=== PATIENT | female | born 1955 | race Caucasian/White ===

== ENCOUNTER 2018-05-10 08:34 | Emergency (ER) | payer OTHER ==
[2018-05-10] MEDS ORDERED: Ondansetron HCl/PF 4 MG/2 ML Vial ONE (09:22)
[2018-05-10 09:31] LABS: Hemoglobin 15.9 g/dL (12.0-16.0); Mean Corpuscular HGB CONC 35.6 g/dL (32.0-36.0); Mean Corpuscular Hemoglobin 29.6 pg (27.0-31.0); Mean Corpuscular Volume 83.2 fL (78.0-98.0); Mean Platelet Volume 6.7 fL (7.4-10.4); Platelet Count 263 thou/uL (130-400); RBC Distribution Width 11.9 % (11.5-14.5); Red Blood Cell (RBC) Count 5.38 mill/uL (4.20-5.40); White Blood Cell (WBC) Count 21.5 thou/uL (4.8-10.8)
[2018-05-10 09:48] LABS: ALT (SGPT) 17 U/L (8-55); AST (SGOT) 10 U/L (5-34); Albumin 4.1 g/dL (3.4-4.8); Alkaline Phosphatase 98 U/L (40-150); Anion Gap 16 mmol/L (10-20); BUN (Urea Nitrogen) 20 mg/dL (9.8-20.1); Bilirubin, Total 1.7 mg/dL (0.2-1.2); Calc. Creatinine Clearance 0 mL/min (70-130); Calcium 11.9 mg/dL (7.8-10.44); Carbon Dioxide 27 mmol/L (23-31); Chloride 99 mmol/L (98-107); Estimated GFR-MDRD 54; Globulin 3.8 g/dL (2.4-3.5); Glucose 152 mg/dL (80-115); Lipase 10 U/L (8-78); Potassium 3.9 mmol/L (3.5-5.1); Protein, Total 7.9 g/dL (6.0-8.3); Sodium 138 mmol/L (136-145)
[2018-05-10 09:57] LABS: Lymphocytes 9 % (21-51); MDiff Complete? YES; Monocytes 4 % (0-10); Neutrophil 87 % (42-75); PLT Morphology Comment Appears Adequate; RBC Morphology Normal
[2018-05-10] MEDS ORDERED: Fentanyl 100 MCG/2 ML VIAL ONE (10:52)
[2018-05-10] MEDS ORDERED: Sodium Chloride 0.9% 100 ML ONE (10:54)
[2018-05-10] MEDS ORDERED: Piperacillin/Tazobactam 3.375 GM VIAL ONE (10:54)
[2018-05-10 11:14] LABS: Bilirubin Small (Negative); Blood, Urine Trace (Negative); Clarity Cloudy (Clear); Glucose, Urine (Dipstick) Negative (Negative); Leukocyte Trace (Negative); Nitrite Negative (Negative); Protein, Urine (Dipstick) 30 mg/dL (Neg-Trace); RBC/HPF 0-3 HPF (0-3); Squamous Epithelial 0-3 HPF (0-3); WBC/HPF 0-3 HPF (0-3); pH, Urine 5.5 (5.0-9.0)
[2018-05-10 11:15] LABS: Bacteria/HPF Rare-Few HPF (None Seen); Crystals/HPF RARE AMORPH URATES HPF (Negative)
--- NOTE | 2018-05-10 14:45 | RAD ---
PORTABLE CHEST: Date: 05/10/18 An AP portable film at 1057 shows a normal sized heart and clear lungs. A NG tube has been placed. Th e full course of the tube is not seen on this study. There does appear to be one curve of the tube th at enters the stomach. IMPRESSION: 1. No acute thoracic findings. 2. NG tube does appear to enter the stomach, but the tip was not seen. POS: HOME
--- NOTE | 2018-05-10 15:07 | CT ---
CT ABDOMEN AND PELVIS WITH CONTRAST: Date: 05/10/[address] of the abdomen and pelvis was performed for evaluation of abdominal pain with nausea and vo miting. Axial slices were acquired after giving IV contrast. Oral contrast was withheld by request. C oronal and sagittal reconstructions were done subsequently. FINDINGS: The lung bases are clear, except for a minor amount of dependent atelectasis. The liver was slightly generous in size, but still probably within normal limits. Internally, no defe cts were seen. The spleen and pancreas appeared normal, as do each adrenal gland. Gallstones were pre sent in the gallbladder, but no gross wall thickening or pericholecystic stranding was seen. The aort a was normal in caliber. A small to medium amount of calcified plaque seen near the bifurcation. Major finding on this study has to do with the bowel. There is tremendous thickening of the doe of the internal ileum, measuring up to 1.0 cm in size. Small bowel proximal to this point is mildly dist ended, up to 4.0 cm in diameter, though the doe elsewhere do not seem exceptionally thick. There is inflammatory stranding in the right lower quadrant. What I interpret to be the appendix is slightly thicker than usual, but I believe it is secondarily inflamed. The locus of most of the inflammation a ppears to be at and above the terminal ileum itself. There is a small amount of surrounding fluid and a small amount of free fluid seen in the cul-de-sac. The colon shows some diverticulosis, but no div erticulitis, and it is not significantly distended. The findings raise question of inflammatory bowel disease, particularly Crohn's disease given the ileal location. Prompt referral for treatment and fo llow-up is needed. No free air seen. There is no focal abscess to be drained. The kidneys show no solid mass or hydronephrosis. There probably is an 8.0 mm cyst in the upper pole of the right kidney. CT of the pelvis was remarkable only for the small amounts of free fluid, mainly in the left cul-de-s ac, and some inflammatory stranding. An incidental finding on the study is a very tiny, fat-filled umbilical hernia of no consequence. IMPRESSION: 1. Extremely thick terminal ileum with substantial inflammatory stranding around it and in the vicin ity. Small pockets of fluid, but no drainable abscess. Currently, inflammatory bowel disease, particu larly Crohn's disease, is at the top of the list for concerns. 2. Mild to moderate distention of small bowel. This could be an ileus secondary to the inflammatory changes, or could be the relative partial small bowel obstruction due to the thickening of the termin al ileum and reduction of lumen size there. 3. Some slight thickening of the appendix, but probably a secondary finding rather than a primary on e. 4. Gallstones. Findings discussed with Dr. Rosales at 1028 hours on 05/10/18. CODE CR. POS: HOME
== END 2018-05-10 11:45 | disposition short-term general hospital (02) ==
LOC: BURERS 08:34
DX: K56.609 Unspecified intestinal obstruction, unspecified as to partial versus complete obstruction (principal); K52.9 Noninfective gastroenteritis and colitis, unspecified
CPT/HCPCS: 36415; 71045; 74177; 80053; 81003; 81015; 83605; 83690; 85025; 93005; 96361; 96365; 96372; 96375; J2405; J2543; J3010; J7050

== ENCOUNTER 2020-11-20 11:06 | Emergency (ER) | payer OTHER ==
[2020-11-20 11:48] LABS: #Lymphocytes 1.5 thou/uL (1.20-3.40); #Monocytes 0.4 thou/uL (0.11-0.59); #Neutrophils 10.6 thou/uL (1.40-6.50); %Basophils 0.3 % (0.0-1.0); %Eosinophils 0.1 % (0.0-10.0); %Lymphocytes 11.8 % (21.0-51.0); %Monocytes 3.4 % (0.0-10.0); %Neutrophils 84.4 % (42.0-75.0); Hemoglobin 16.1 g/dL (12.0-16.0); Mean Corpuscular HGB CONC 34.2 g/dL (32.0-36.0); Mean Corpuscular Hemoglobin 31.6 pg (27.0-31.0); Mean Corpuscular Volume 92.2 fL (78.0-98.0); Mean Platelet Volume 7.8 fL (7.4-10.4); Platelet Count 227 thou/uL (130-400); RBC Distribution Width 11.3 % (11.5-14.5); Red Blood Cell (RBC) Count 5.11 mill/uL (4.20-5.40); White Blood Cell (WBC) Count 12.5 thou/uL (4.8-10.8)
[2020-11-20] MEDS ORDERED: Fentanyl 100 MCG/2 ML VIAL ONE (12:02)
[2020-11-20] MEDS ORDERED: Ketorolac Tromethamine 30 MG/ML VIAL ONE (12:03)
[2020-11-20] MEDS ORDERED: Glycopyrrolate 0.4 MG/ 2 ML VIAL ONE (12:03)
[2020-11-20 12:05] LABS: ALT (SGPT) 27 U/L (8-55); AST (SGOT) 20 U/L (5-34); Albumin 4.3 g/dL (3.4-4.8); Alkaline Phosphatase 96 U/L (40-110); Anion Gap 14 mmol/L (10-20); BUN (Urea Nitrogen) 12 mg/dL (9.8-20.1); Bilirubin, Total 0.6 mg/dL (0.2-1.2); Calc. Creatinine Clearance 0 mL/min (70-130); Calcium 10.1 mg/dL (7.8-10.44); Carbon Dioxide 25 mmol/L (23-31); Chloride 104 mmol/L (98-107); Globulin 3.2 g/dL (2.4-3.5); Glucose 135 mg/dL (80-115); Lipase 25 U/L (8-78); Protein, Total 7.5 g/dL (6.0-8.3); Sodium 139 mmol/L (136-145)
[2020-11-20] MEDS ORDERED: Iopamidol 370 76% 100 ML VIAL ONE (12:36)
[2020-11-20 14:02] LABS: Bilirubin Negative (Negative); Blood, Urine Trace (Negative); Clarity Slightly Cloudy (Clear); Glucose, Urine (Dipstick) Negative (Negative); Ketone, Urine 15 mg/dL (Negative); Leukocyte Negative (Negative); Nitrite Negative (Negative); Protein, Urine (Dipstick) Negative (Neg-Trace); Specific Gravity, Urine 1.015 (1.005-1.030); Urobilinogen 0.2 mg/dL (Less than 2); pH, Urine 7.5 (5.0-9.0)
[2020-11-20 14:04] LABS: Bacteria/HPF Rare-Few HPF (None Seen); RBC/HPF 0-3 HPF (0-3); Squamous Epithelial 0-3 HPF (0-3); WBC/HPF 0-3 HPF (0-3)
--- NOTE | 2020-11-20 14:21 | CT ---
CT ABDOMEN AND PELVIS WITH CONTRAST: 11/20/[address] of the abdomen and pelvis was performed for evaluation of abdominal pain and constipation. Comparison is made with a prior CT dated 05/10/18 that showed prominent inflammatory changes of the te rminal ileum. The major finding on today's study also lies in the right lower quadrant. The appendix appears to be very dilated and fluid filled, but without obvious inflammatory change around it. It is 1.8 cm wide a nd the density of the fluid in it raises the question of a mucocele. This was not present in 2018. Se e comments below. The lung bases are clear. The liver, spleen, pancreas, adrenal glands, kidneys and abdominal aorta sh owed no acute findings. A cyst is seen in the upper pole of the right kidney which is slightly larger today than before but measures 1.5 cm. Multiple gallstones are present in the gallbladder as previou sly. Aside from the appendiceal findings, there is extensive sigmoid diverticulosis without findings of di verticulitis. A small hiatal hernia is present. CT of the pelvis shows no pelvic masses, fluid collec tions or gross inflammatory changes. IMPRESSION: 1. Fluid-filled dilated appendix that raises the question of a mucocele as there is no inflammat ory change around it and my understanding is the clinical picture is not localizing here at the [facility] t. Given the prior history of fairly intense inflammatory change around the terminal ileum in 2018, I would wonder if the subsequent inflammation perhaps caused scarring of ostium of the appendix, ulti mately leading to a mucocele. Of course, one also always worries about the possibility of a tumor in the cecum obstructing the ostium as well. Surgical consultation is recommended. 2. Multiple gallstones, similar to before. 3. Small hiatal hernia. 4. Other findings as listed above. Preliminary findings called to Dr. Segura at 12:50 on 11/20/20. POS: HOME
[2020-11-20] MEDS ORDERED: Cefepime 2 GM VIAL ONE (14:48)
[2020-11-20] MEDS ORDERED: Sodium Chloride 0.9% 100 ML ONE (14:49)
[2020-11-20] MEDS ORDERED: Lisinopril 20 MG TAB ONE (14:57)
[2020-11-20 15:50] LABS: SARS-CoV-2 NAA Rapid Test Not Detected (NotDetected)
== END 2020-11-20 15:00 | disposition short-term general hospital (02) ==
LOC: BURERS 11:06
DX: R10.33 Periumbilical pain (principal)
CPT/HCPCS: 0240U; 36415; 74177; 80053; 81003; 81015; 83605; 83690; 85025; 94760; 96374; 96375; J0692; J1885; J3010; J3490; Q9967

== ENCOUNTER 2021-06-20 21:16 | Emergency (ER) | payer OTHER ==
[2021-06-20] MEDS ORDERED: cefTRIAXone\\ROCEPHIN 2 GM VIAL ONE (21:44)
[2021-06-20] MEDS ORDERED: Azithromycin 500 MG VIAL ONE (21:44)
[2021-06-20 21:46] LABS: #Lymphocytes 0.8 thou/uL (1.20-3.40); #Monocytes 0.4 thou/uL (0.11-0.59); #Neutrophils 5.5 thou/uL (1.40-6.50); %Basophils 0.1 % (0.0-1.0); %Lymphocytes 11.6 % (21.0-51.0); %Monocytes 5.8 % (0.0-10.0); %Neutrophils 82.5 % (42.0-75.0); Hemoglobin 16.4 g/dL (12.0-16.0); Mean Corpuscular HGB CONC 33.7 g/dL (32.0-36.0); Mean Corpuscular Hemoglobin 30.4 pg (27.0-31.0); Mean Corpuscular Volume 90.3 fL (78.0-98.0); Mean Platelet Volume 7.2 fL (7.4-10.4); Platelet Count 272 thou/uL (130-400); RBC Distribution Width 11.8 % (11.5-14.5); Red Blood Cell (RBC) Count 5.39 mill/uL (4.20-5.40); White Blood Cell (WBC) Count 6.7 thou/uL (4.8-10.8)
[2021-06-20 22:03] LABS: ALT (SGPT) 62 U/L (8-55); AST (SGOT) 112 U/L (5-34); Albumin 3.7 g/dL (3.4-4.8); Alkaline Phosphatase 129 U/L (40-110); Anion Gap 22 mmol/L (10-20); BUN (Urea Nitrogen) 63 mg/dL (9.8-20.1); Bilirubin, Total 0.6 mg/dL (0.2-1.2); CK (CPK) 226 U/L (29-168); Calc. Creatinine Clearance 0 mL/min (70-130); Calcium 9.7 mg/dL (7.8-10.44); Carbon Dioxide 18 mmol/L (23-31); Chloride 103 mmol/L (98-107); Globulin 2.8 g/dL (2.4-3.5); Glucose 167 mg/dL (80-115); Potassium 4.2 mmol/L (3.5-5.1); Protein, Total 6.5 g/dL (5.8-8.1); Sodium 139 mmol/L (136-145)
[2021-06-20] MEDS ORDERED: Dexamethasone 10 MG/ML VIAL ONE (23:17)
== END 2021-06-20 23:05 | disposition short-term general hospital (02) ==
LOC: BURERS 21:16
DX: U07.1 COVID-19 (principal); J12.82 Pneumonia due to coronavirus disease 2019
CPT/HCPCS: 36415; 71045; 80053; 82550; 83605; 84484; 85025; 87040; 93005; 96365; 96367; 96375; J0456; J0696; J1100